=== PATIENT | female | born 1950 | race Caucasian/White ===

== ENCOUNTER 2018-09-23 20:05 | Outpatient (REF) | payer MEDICARE, SELFPAY ==
[2018-09-23 20:23] LABS: Bilirubin Negative (Negative); Blood Large (Negative); Clarity Cloudy; Glucose Negative (Negative); Ketones Negative (Negative); Leukocyte Esterase Small (Negative); Nitrite Negative (Negative); Specific Gravity 1.025 (1.005-1.025); Urobilinogen 0.2 EU/dL (Up TO 0.2)
[2018-09-23 21:03] LABS: C & S Indicated? Yes
== END 2018-09-23 20:25 ==
LOC: LBN 20:05
PROVIDERS: PCP Family Medicine; Visit Provider Family Medicine
DX: R35.0 Frequency of micturition (principal)
CPT/HCPCS: 87077; 81003; 81015; 87086; 87186

== ENCOUNTER 2018-10-15 01:01 | Outpatient (CLI) | payer MEDICARE, SELFPAY ==
--- NOTE | 2018-10-15 09:28 | DI.MAMMO_ITS ---
SYMPTOM/DIAGNOSIS: SCREENING, Z12.31 MAMMOGRAMS: Mammograms were interpreted according to the usual protocol including computer analysis with CAD system, tomosynthesis and C view imaging. Comparison is made with prior examinations. Breast density, category B. No suspicious masses or microcalcifications are seen. There has been no significant change compared to the prior examinations. IMPRESSION: No definite evidence for malignancy. Yearly mammography is recommended. Category 1. MQSA ASSESSMENT OF FINDINGS: Negative. Category 1. Patient will receive a letter notifying them of these results. BI-RADS category B. There are scattered areas of fibroglandular density.
== END 2018-10-15 01:21 ==
PROVIDERS: PCP Family Medicine; Visit Provider Family Medicine
DX: Z12.31 Encounter for screening mammogram for malignant neoplasm of breast (principal)
CPT/HCPCS: 77063; 77067

== ENCOUNTER 2019-03-10 10:00 | Outpatient (CLI) | payer MEDICARE, OTHER, SELFPAY | END 2019-03-10 10:20 | PROVIDERS: PCP Family Medicine; Visit Provider Internal Medicine Cardiovascular Disease | DX: I49.3 Ventricular premature depolarization (principal); I10 Essential (primary) hypertension | CPT/HCPCS: 99214 ==

== ENCOUNTER → 2019-08-19 09:55 | Outpatient (BNVA) | payer MEDICARE, OTHER, SELFPAY | PROVIDERS: PCP Family Medicine; Referring Provider Family Medicine; Visit Provider Physical Therapy Assistant | DX: Z12.11 Encounter for screening for malignant neoplasm of colon (principal); I10 Essential (primary) hypertension ==

== ENCOUNTER 2019-08-29 12:02 | Day surgery (SDC) | payer MEDICARE, OTHER, SELFPAY ==
--- NOTE | 2019-08-29 06:57 | W.COLOREPORT ---
Date of service: 08/29/19 Time of Service: 13:36 Colonoscopy Report Date of procedure: 08/29/19 Pre-op diagnosis general: Colon Cancer Screening Post-op diagnosis procedure note: other (2 polyps) Procedure: Colonoscopy with polypectomy Surgeon: Maria Luisa Clark Anesthesia proc note operative: other (General/ ASA 2/Rosaline Grimaldo CRNA) Estimated blood loss (mL): 5 Pathology: other (ascending polyp, sigmoid polyp) Complications: None Disposition: same day Indications: Mrs. Hale is a pleasant 69 year old female seen in the office for a screening colonoscopy. Risks, benefits and complications have been reviewed. Complications include but are not limited to bleeding, pain, perforation, missed small lesion/polyp, sore throat, aspiration and adverse reaction to the medications. Questions were entertained and answered to their satisfaction and they wished to proceed. No guarantees were given or implied. Prep: Miralax/Dulcolax Procedure Start Time: 13:36 Procedure End Time: 14:04 Retraction Time: 19 minutes Findings: 2 very small polyps, most likely benign Procedure Description: After informed consent was obtained the patient was taken to the procedure room and placed in a left decubitous position. Monitors were applied and a time out was done. The patients name, date of , procedure, allergies to medications and metal in their body was reviewed. The patient was then sedated. Once sedated and comfortable a rectal exam was done. External exam was normal. Internal exam revealed a normal sphincter tone and no palpable masses. The scope was then introduced and retro-flexed. No internal hemorrhoids, masses and polyps were identified on retro-flexion. The scope was then advanced to the cecum without difficulty. The TI and appendiceal orifice were identified. The prep was adequate. The scope was then slowly retracted over 19 minutes back into the rectum. Polyps were removed in the ascending colon and sigmoid colon with cold forceps. The polyps were small and looked benign. The scope was removed and the patient was woken up and taken back to Same day surgery in stable condition. The patient tolerated the procedure well and there were no immediate complications. Follow up: The patient should follow up in 10 years unless they develop changes in bowel habits or other new gastrointestinal complaints.
--- NOTE | 2019-08-29 06:59 | W.PM.DSUDISC ---
Discharge Plan Disposition Patient Disposition: HOME Condition: Good Discharge Details Reason For Visit: colonoscopy Attending Provider: Maria Luisa Clark Primary Care Provider: Bertha Oconnell Home Meds and New Rx's Prescriptions: Continued sodium hyaluronate 20 mg capsule PO RF: 0 B-complex with vitamin C Tablet 1 tab PO DAILY RF: 0 cholecalciferol (vitamin D3) 1,000 UNIT capsule 4,000 unit PO DAILY RF: 0 vitamin E (dl, acetate) 400 UNIT capsule 400 unit PO DAILY RF: 0 turmeric root extract 1 EACH capsule 1 ea PO DAILY Qty: 1 RF: 0 alprazolam [Xanax] 1 mg tablet 1 mg PO BID PRN (Reason: anxiety) Qty: 10 RF: 0 magnesium L-lactate [Magtab] 84 mg tablet extended release 252 mg PO DAILY Qty: 1 RF: 0 atenolol 25 mg tablet 25 mg PO DAILY PRN (Reason: Palpitations) Qty: 90 RF: 4 amitriptyline 10 mg tablet 30 mg PO HS Qty: 270 RF: 12 Discontinued polyethylene glycol 3350 17 gram/dose powder 238 g PO ONCE Qty: 238 RF: 0 bisacodyl [Dulcolax (bisacodyl)] 5 mg tablet,delayed release (DR/EC) 5 mg PO ONCE Qty: 4 RF: 0 Discharge Instructions Instructions: Colonoscopy (DC) Additional Instructions: Findings: 2 very small polyps Follow up: depends on final pathology Please call if you develop: fevers >101.5 Nausea or Vomiting Abdominal pain that is not transient DAY SURGERY UNIT POST ENDOSCOPY INSTRUCTIONS 1. Because there will be medication in your system for the next 24 hours, you may feel a little sleepy. Your coordination will be affected. Therefore: a. Do not drive or operate dangerous equipment for 24 hours. b. Do not drink alcohol beverages for 24 hours (not even beer). c. Plan to go home and rest for the day. 2. Generally there are no restrictions on your activity after a day or so has gone by, but you may feel a bit fatigued for a few days. 3 After you arrive home you may have a light meal and return to a normal diet as you can tolerate it without feeling sick to your stomach. 4. After surgery, you may feel pain or discomfort. This should be only transient, but if it persists please contact your doctor. 5. If there are any questions regarding the findings of your procedure, please feel free to contact your doctor. 6. If you are unable to contact your doctor with a problem, contact the hospital at [phone]. 7. Continue all your regular medications unless directed otherwise. I understand the above instructions and have no questions. Signature of Patient or Responsible Adult Escort Date/Time Name of Responsible Adult Escort Signature of Nurse Date/Time Activity:: Activity as Tolerated Diet:: As Tolerated Discharge Orders Discharge Orders: Discharge Order (Routine); Ordered 08/29/19 Ordered By: Maria Luisa Clark DS: Diagnosis Discharge Diagnosis (1) S/P colonoscopy: Status: Acute
[2019-08-29 12:42] VITALS: BP 141/89; PULSE 95; RESP 18; TEMP 37.1; O2SAT 98
[2019-08-29 12:47] VITALS: BP 141/89; PULSE 95; RESP 18; TEMP 37.1; O2SAT 98
[2019-08-29 12:49] VITALS: BP 141/89; PULSE 95; RESP 18; TEMP 37.1; O2SAT 98
[2019-08-29] MEDS: Lactated Ringers 1,000 ML 80 ML IV (13:00)
--- NOTE | 2019-08-29 13:49 | BOWEL_PTH ---
PATIENT: Meseret Villanueva LOC: [facility] U#:[id number] AGE/SX: 69/F ROOM: RE08/29/[address]: Maria Luisa Clark MD : 1950 BED: DIS: 08/29/2019 SPEC #: [id number] RECD: 08/29/19 19:22 STATUS: DELMIS REQ #: [id number] SAADIA: 08/29/19 13:[address]: Maria Luisa Clark DEPT: Surgical Specimen RECD BY: Hanny Claros ENTERED: 08/29/19 19:24 SP TYPE: Bowel OTHR DR: Bertha Oconnell MD, DC Tissues: 1 - BIOPSY BOWEL 2 - BIOPSY BOWEL Procedures: GROSS AND MICRO LEVEL 4 Comments: [id number]
[2019-08-29 14:42] VITALS: BP 125/79; PULSE 78; RESP 16; TEMP 36.6; O2SAT 97
== END 2019-08-29 15:40 | disposition home or self-care (01) ==
LOC: SUR 12:02
PROVIDERS: PCP Family Medicine; Visit Provider Surgery
PROC: 0DJD8ZZ Inspection of Lower Intestinal Tract, Via Natural or Artificial Opening Endoscopic (ICD-10-PCS; CPT 45378; principal; 2019-08-29 13:30)
DX: Z12.11 Encounter for screening for malignant neoplasm of colon (principal); K63.5 Polyp of colon; I10 Essential (primary) hypertension
CPT/HCPCS: 45380; 88305

== ENCOUNTER 2020-07-10 00:56 | Outpatient (CLI) | payer MEDICARE, OTHER, SELFPAY ==
--- NOTE | 2020-07-10 08:15 | DI.DEXA_ITS ---
EXAM: XR DEXA BONE DENSITY W/WO MICHELINE CLINICAL HISTORY: osteoporosis, M81.0 TECHNIQUE: COMPARISON: 10/01/2009. FINDINGS: Lateral Spine Image: Unremarkable. No compression deformities identified. Left hip: Total T-Score: -0.2. Compared with 0.2 on the prior examination. Total Z-Score: 1.2 T- and Z-scores: Within normal limits. Lumbar Spine: Total T-Score: -1.8. Compared with -1.4 on the prior examination. Total Z-Score: 0.2 T- and Z-scores: Osteopenia and increased fracture risk. IMPRESSION: Osteopenia in the lumbar spine.
--- NOTE | 2020-07-10 16:22 | DI.MAMMO_ITS ---
EXAM: MG MAMMO SCREENING CLINICAL HISTORY: screening, Z12.39 TECHNIQUE: Bilateral full field digital CC and MLO mammographic images were obtained with 3D tomosyn thesis and utilizing computer aided detection (CAD). COMPARISON: Available for comparison. FINDINGS: Masses/Architectural Distortion: There is a new well-circumscribed nodule in the retroareolar central left breast on the mediolateral oblique view. This area should be further evaluated with spot compr ession views and ultrasound. Microcalcifications: No suspicious pleomorphic-type are seen. Skin Thickening/Nipple Retraction: None. IMPRESSION: 1. Well-circumscribed nodule in the retroareolar region of the left breast on the MLO view. 2. Spot compression view and left breast ultrasound are recommended for further evaluation. BI-RADS Category 0 - Assessment Incomplete: Need additional imaging evaluation Breast Density - Category B - Scattered areas of fibroglandular density A negative radiographic report should not delay biopsy if a dominant or clinically suspicious mass is present. Up to ten percent of cancers are not identified on mammography. A negative report may reinforce clinical impression. Adenosis and dense breasts may obscure an underlying neoplasm. False positive reports average 6 to 10%. Patient will receive a letter notifying them of these results.
== END 2020-07-10 01:16 ==
PROVIDERS: PCP Family Medicine; Visit Provider Family Medicine
DX: Z12.31 Encounter for screening mammogram for malignant neoplasm of breast (principal); N63.20 Unspecified lump in the left breast, unspecified quadrant; M85.88 Other specified disorders of bone density and structure, other site
CPT/HCPCS: 77063; 77067; 77080

== ENCOUNTER 2020-07-18 01:07 | Outpatient (CLI) | payer MEDICARE, OTHER, SELFPAY ==
--- NOTE | 2020-07-18 | DI.MAMMO_ITS ---
EXAM: MG MAMMO SCREEN CALL BACK UNI CLINICAL HISTORY: F/U MAMMO, LT BREAST NODULE ON MLO VIEW TECHNIQUE: Spot compression views and tomographic imaging were performed. COMPARISON: 2009 through the recent exam of 10 July 2020. FINDINGS: The breasts are composed of scattered fibroglandular densities, Breast Density category B. No suspicious masses or suspicious microcalcifications are seen. No persistent abnormality is seen on the additional views performed. The findings are consistent wit h overlying fibroglandular tissue. There has been no significant change from prior exams. IMPRESSION: BI-RADS Category 1, Negative Yearly screening mammography is recommended. Breast Density - Category B, scattered fibroglandular densities.
== END 2020-07-18 01:27 ==
PROVIDERS: PCP Family Medicine; Visit Provider Family Medicine
DX: N63.20 Unspecified lump in the left breast, unspecified quadrant (principal)
CPT/HCPCS: 77063; 77067

== ENCOUNTER 2021-07-09 01:37 | Outpatient (CLI) | payer MEDICARE, OTHER, SELFPAY ==
--- NOTE | 2021-07-09 | DI.US_ITS ---
Exam(s) US THYROID EXAM: US THYROID CLINICAL HISTORY: THYROID NODULE, E04.1. TECHNIQUE: Ultrasound thyroid performed using standard protocol. COMPARISON: US THYROID ULTRASOUND from 12/15/2013 US THYROID ULTRASOUND from 12/15/2013 FINDINGS: ISTHMUS: 1 mm RIGHT LOBE: Size: 4.5 cc by 1.8 AP by 1.9 transverse cm Echogenicity: Normal. Vascularity: Normal. Nodules: There is again seen a single nodule in the midpole. It measures 1.6 cc by 0.8 AP by 1.3 tra nsverse cm. This compares with 1.4 x 0.9 x 1.3 cm on the prior examination. The nodule is solid and hypoechoic. It shows smooth margins and no internal echogenic foci. It is consistent with a TI-RAD S level 4 nodule. LEFT LOBE: Size: 3.9 cc by 1.5 AP by 1.3 transverse cm Echogenicity: Normal. Vascularity: Normal. Nodules: None. OTHER FINDINGS: None. IMPRESSION: Stable right thyroid nodule. DATA REPOSITORY:
== END 2021-07-09 01:57 ==
PROVIDERS: PCP Family Medicine; Visit Provider Otolaryngology
DX: E04.1 Nontoxic single thyroid nodule (principal)
CPT/HCPCS: 76536

== ENCOUNTER 2021-09-04 02:41 | Outpatient (CLI) | payer MEDICARE, OTHER, SELFPAY ==
--- NOTE | 2021-09-04 08:15 | DI.MAMMO_ITS ---
Exam(s) MAMMO SCREENING EXAM: MAMMO SCREENING CLINICAL HISTORY: screening,Z12.39. TECHNIQUE: Bilateral full field digital CC and MLO mammographic images were obtained with 3D tomosyn thesis and utilizing computer aided detection (CAD). COMPARISON: Prior mammograms dating back to 2013, the most recent being July 2020. FINDINGS: No new significant radiograph findings in the right breast. In the left breast on 3D MLO imaging there is an asymmetric density-possible nodule located 3.5 cm be hind the nipple and measuring approximately the 8 by 6 millimeters. Noncalcified. No malignant-appearing microcalcification groups in this region or elsewhere in either breast. There is no significant architectural distortion nor skin thickening-retraction. IMPRESSION: 1. No radiographic evidence of malignancy in right breast. 2. Possible left breast nodule. Spot compression MLO view ultrasound recommended BI-RADS Category 0 - Assessment Incomplete: Need additional imaging evaluation Breast Density - Category B - Scattered areas of fibroglandular density Breast density Category C or D implies that the patient has dense breast tissue. Dense breast tissue can make it harder to find cancer on a mammogram. Dense breast tissue is also associated with an incr eased risk of breast cancer. This information about the result of the mammogram report was provided to the patient to raise their awareness. Use this report when you speak with the patient about their risks for breast cancer, which includes their family history. At that time, you may recommend additional screening tests (Ultrasoun d or MRI) as these tests may add significant information. A negative radiographic report should not delay biopsy if a dominant or clinically suspicious mass is present. Up to ten percent of cancers are not identified on mammography. A negative report may reinforce clinical impression. Adenosis and dense breasts may obscure an underlying neoplasm. False positive reports average 6 to 10%. Patient will receive a letter notifying them of these results.
== END 2021-09-04 03:01 ==
PROVIDERS: PCP Family Medicine; Visit Provider Family Medicine
DX: Z12.31 Encounter for screening mammogram for malignant neoplasm of breast (principal); R92.8 Other abnormal and inconclusive findings on diagnostic imaging of breast
CPT/HCPCS: 77063; 77067

== ENCOUNTER 2021-09-20 00:55 | Outpatient (CLI) | payer MEDICARE, OTHER, SELFPAY ==
--- NOTE | 2021-09-20 10:30 | DI.MAMMO_ITS ---
Exam(s) MG MAMMO SCREEN CALL BACK UNI US BREAST LT COMPLETE EXAM: US BREAST LT COMPLETE CLINICAL HISTORY: ASYMMETRIC DENSITY POSSIBLE NODULE LT BREAST TECHNIQUE: Ultrasound performed using standard protocol. COMPARISON: No exams were available for comparison FINDINGS: Additional mammographic views of the left breast and left breast ultrasound are interpreted in conjun ction. These examinations were obtained to evaluate a retroareolar area of nodularity seen on recent mammogram September 04 in the retroareolar central portion of the left breast. Spot compression vie ws today show well-circumscribed persistent but fairly low density nodule, this measures about 9 mill imeters in diameter. Breast ultrasound shows prominent retroareolar ducts but no discrete mass. A 5 millimeter lymph node is noted within the breast as well. No additional mass identified ultrasonographically or on compression views. IMPRESSION: Probably benign findings in the left breast with prominent intramammary ducts and small lymph node wi th normal morphology noted. Follow-up unilateral left breast mammogram recommended in 6 months. BI-RADS Cat 3 - 6 month - Probably Benign Finding: Recommend follow-up imaging in 6 months Breast Density - Category C - Heterogeneously dense DATA REPOSITORY:
== END 2021-09-20 01:15 ==
PROVIDERS: PCP Family Medicine; Visit Provider Family Medicine
DX: R92.8 Other abnormal and inconclusive findings on diagnostic imaging of breast (principal)
CPT/HCPCS: 76642; 77063; 77067

== ENCOUNTER 2021-10-28 01:37 | Outpatient (RCR) | payer MEDICARE, OTHER, SELFPAY ==
--- NOTE | 2021-10-28 11:30 | HOLTER_ITS ---
APPROVED REPORT Conclusion This is a 48-hour Holter monitor ordered for palpitations Predominant rhythm was sinus with an average heart rate of 91. Minimum was 62, maximum 134 There were no significant supraventricular dysrhythmias. There was no atrial fibrillation, no high-grade AV block, no pauses greater than 3 seconds There were occasional ventricular ectopic beats which corresponded to patient symptoms, noting that n ot all PVCs were symptomatic
== END 2021-11-08 23:59 | disposition home or self-care (01) ==
LOC: RT 01:37
PROVIDERS: PCP Family Medicine; Visit Provider Family Medicine
DX: R00.2 Palpitations (principal); I49.3 Ventricular premature depolarization
CPT/HCPCS: 93227; 93246; 93225; 93226

== ENCOUNTER → 2021-11-13 01:58 | Outpatient (CLI) | payer MEDICARE, SELFPAY ==
--- NOTE | 2021-11-13 10:16 | DI.US_ITS ---
APPROVED REPORT EXAM: Comprehensive 2D, Doppler, and color-flow Echocardiogram Patient Location: Out-Patient Stripper Latex: Jaelyn Russell RDCS (AE) Indications: Palpitations Other Information Study Quality: Adequate Conclusion Normal left ventricular size and systolic function. Estimated ejection fraction is 60 to 65%. Wall motion is normal Normal right ventricular size and systolic function Both atria are normal in size Trileaflet aortic valve without stenosis or regurgitation Mild mitral annular calcification, trace mitral regurgitation Normal tricuspid valve with trace regurgitation Wall motion Left Ventricle The left ventricle is normal size. The left ventricular systolic function is normal. The left ventric ular ejection fraction is within the normal range. There is normal left ventricular wall thickness. T here is normal LV segmental wall motion. There is no ventricular septal defect visualized. LVEF is 60 -65%. Right Ventricle The right ventricle is normal size. The right ventricular systolic function is normal. Atria The left atrium size is normal. The right atrium size is normal. The interatrial septum is intact wit h no evidence for an atrial septal defect. Aortic Valve The aortic valve is normal in structure. Aortic valve is trileaflet. There is no aortic valvular sten osis. No aortic regurgitation is present. Mitral Valve Mild mitral annular calcification. No evidence of mitral valve stenosis. Trace mitral regurgitation. Tricuspid Valve The tricuspid valve is normal in structure. There is no tricuspid valve stenosis. Trace tricuspid reg urgitation. Unable to assess PA pressure. Pulmonic Valve The pulmonary valve is normal in structure. There is no pulmonic valvular stenosis. Trace pulmonic re gurgitation. Great Vessels The aortic root is normal in size. The ascending aorta is normal in size. Aortic arch is not well vis ualized. IVC is normal in size and collapses >50% with inspiration. Pericardium There is no pericardial effusion. 2D Dimensions IVSD d PLAX 0.96 cm F: 0.6-1.0 LV Vol A2C d MOD 63.3 mL LVPW d PLAX 0.94 cm F: 0.6 - 1.0 LV Vol A4C d MOD 63.0 mL LVID d PLAX 4.18 cm F: 3.8 - 5.2 LA vol/ BSA A2C s A-L 14.5 mL/m2 LVDs 2.90 cm F: 2.2 - 3.5 LA vol/ BSA A4C s A-L 9.4 mL/m2 Ao Root d 2.78 cm F: 2.7 - 3.3 LA Vol/ BSA Biplane s A-L 12.6 mL/m2 RA Area A4C 10.53 cm2 LA Area A4C s MOD 8.74 cm2 RA Vol/ BSA A4C s A-L 11.9 mL/m2 LA Area A2C s MOD 11.82 cm2 Ao Asc Diam d 2.99 cm F: 2.3 - 3.1 LV EF A4C MOD 58.3 % LV EF Teichholz 58.5 % LV EF A2C MOD 58.3 % LVEF (Granda's) 59.20 % F: 54 - 74 LV EF Biplane MOD 59.2 % LV Volume 52.10 mL F: 46 - 106 SV 40.01 mL LV Volume Index 28.31 mL/m2 F: 29 - 61 SV Index 21.67 mL/m2 LV Vol Biplane MOD 67.6 mL FS 30.55 % M-Mode TAPSE 2.32 cm (M/F) >1.7 LV Diastology MV E' medial 0.068 (>0.07 m/s) E/A Ratio 0.7 LV E/e MED 9.00 (<14) MV E Vmax 0.62 (0.4-1.3 m/s) MV E' lateral 0.083 (>0.1 m/s) MV A Vmax 0.95 (0.4-1.3 m/s) LV E/e LAT 7.45 (<14) MV E/A Ratio 0.63 MV E/E' medial 9.05 MV E/E' lateral 7.45 Aortic Valve LVOT Area 3.53 cm2 AoV Area Vmax 2.87 cm2 LVOT Vmax 1.01 m/s AoV Area/ BSA (Vmax) 1.56 cm2/m2 LVOT Mean Darrel. 0.68 m/s [place] Mean Darrel. 2.64 cm2 LVOT Peak Grad 4.1 mmHg [place] Mean Darrel. Index 1.43 cm2/m2 LVOT Mean Grad 2.1 mmHg LVOT VTI 0.195 m LVOT Diam s 2.10 cm AoV Vmax 1.25 m/s Velocity Ratio 0.80 AoV Mean Darrel. 0.91 m/s AoV Peak Grad 6.2 mmHg LVOT SV 68.90 mL AoV Mean Grad 3.7 mmHg AoV VTI 0.226 m AoV Area VTI 3.05 cm2 AoV Area/ BSA (VTI) 1.65 cm/m2 Mitral Valve MV DT 356 (160-240 msec) MV PHT 103 msec MV Area PHT 2.13 cm2 MV VTI 0.214 m MV Area VTI 3.21 (4.0-6.0 cm2) Pulmonary Valve PV Vmax 0.96 (0.5-1.5 m/s) RVOT Peak Gr. 2.11 mmHg PV Peak Grad 3.7 mmHg RVOT Mean Gr. 1.00 mmHg PV Mean Grad 2.0 mmHg RVOT VTI 0.155 m PV VTI 0.172 m RVOT Vmax 0.73 m/s
== END ==
PROVIDERS: PCP Family Medicine; Visit Provider Family Medicine
DX: R00.2 Palpitations (principal)
CPT/HCPCS: 93306

== ENCOUNTER → 2022-04-18 00:30 | Outpatient (CLI) | payer MEDICARE, SELFPAY ==
--- NOTE | 2022-04-18 07:45 | DI.MAMMO_ITS ---
Exam(s) MAMMO DIAGNOSTIC UNI EXAM: MAMMO DIAGNOSTIC UNI CLINICAL HISTORY: 3-6 mos f/u abnormal mammo,Z09,R92.8. TECHNIQUE: Craniocaudal and mediolateral oblique Full Field Digital Mammography views of the left br east with Computer Aided Diagnosis followed by Tomosynthesis. COMPARISON: Comparison is made with prior examinations. FINDINGS: Mammography/Tomosynthesis: Masses/Architectural Distortion: None seen. Microcalcifictions: No suspicious pleomorphic-type are seen. Skin Thickening/Nipple Retraction: None. IMPRESSION: 1. No evidence of malignancy is noted. 2. Unless there is more urgent need, follow-up screening mammography is recommended, as per [employer] guidelines. 3. The findings were discussed with the patient on the date of the examination. BI-RADS Category 1 - Negative Breast Density - Category B - Scattered areas of fibroglandular density Breast density Category C or D implies that the patient has dense breast tissue. Dense breast tissue can make it harder to find cancer on a mammogram. Dense breast tissue is also associated with an incr eased risk of breast cancer. This information about the result of the mammogram report was provided to the patient to raise their awareness. Use this report when you speak with the patient about their risks for breast cancer, which includes their family history. At that time, you may recommend additional screening tests (Ultrasoun d or MRI) as these tests may add significant information. A negative radiographic report should not delay biopsy if a dominant or clinically suspicious mass is present. Up to ten percent of cancers are not identified on mammography. A negative report may reinforce clinical impression. Adenosis and dense breasts may obscure an underlying neoplasm. False positive reports average 6 to 10%. Patient will receive a letter notifying them of these results.
== END ==
PROVIDERS: PCP Family Medicine; Visit Provider Family Medicine
DX: R92.8 Other abnormal and inconclusive findings on diagnostic imaging of breast (principal); N64.59 Other signs and symptoms in breast
CPT/HCPCS: 77061; 77065; G0279

== ENCOUNTER 2022-07-15 19:40 | Outpatient (REF) | payer MEDICARE, SELFPAY ==
[2022-07-15 21:23] LABS: Bilirubin Negative (Negative); Blood Trace-intact (Negative); Clarity Clear (Clear); Glucose Negative (Negative); Ketones Negative (Negative); Leukocyte Esterase Negative (Negative); Nitrite Negative (Negative); Urobilinogen 0.2 EU/dL (Up TO 0.2)
[2022-07-15 22:17] LABS: Bacteria Negative HPF (Negative); C & S Indicated? Yes; Casts Negative LPF (Negative); Crystals Negative HPF (Negative); Epithelial Cells Negative HPF (Negative); Mucus Negative (Negative); Other Cells Negative (Negative); RBC Negative HPF (0-2)
== END 2022-07-15 19:41 | disposition home or self-care (01) ==
LOC: LBN 19:40
PROVIDERS: PCP Family Medicine; Visit Provider Family Medicine
DX: R30.0 Dysuria (principal)
CPT/HCPCS: 81003; 81015; 87086

== ENCOUNTER → 2023-07-27 02:54 | Outpatient (CLI) | payer MEDICARE, SELFPAY ==
--- NOTE | 2023-07-27 08:00 | DI.US_ITS ---
Exam(s) US THYROID EXAM: US THYROID CLINICAL HISTORY: Assess stability,rt thyroid nodule,e04.1. TECHNIQUE: Ultrasound thyroid performed using standard protocol. COMPARISON: US THYROID ULTRASOUND from 12/15/2013 US US THYROID from 07/09/2021 FINDINGS: ISTHMUS: 2 mm RIGHT LOBE: Size: 4.71.9 x 1 9 cm Echogenicity: Normal. Vascularity: Normal. Nodules: Stable appearances 2013 of solid smoothly marginated hypoechoic nodule without echogenic foc i. Shows blood flow. Measuring 1.5 x 1.1 x 1.1 cm. TR 4. LEFT LOBE: Size: 4.0 x 1.0 x 1.2 cm Echogenicity: Normal. Vascularity: Normal. Nodules: None. OTHER FINDINGS: None. IMPRESSION: Stable appearance of thyroid nodule from 2013. No new nodules. DATA REPOSITORY:
== END ==
PROVIDERS: PCP Family Medicine; Visit Provider Otolaryngology
DX: E04.1 Nontoxic single thyroid nodule (principal)
CPT/HCPCS: 76536

== ENCOUNTER → 2023-11-23 04:29 | Outpatient (CLI) | payer MEDICARE, SELFPAY ==
--- NOTE | 2023-11-23 10:10 | DI.RAD_ITS ---
Exam(s) RF BARIUM SWALLOW EXAM: RF BARIUM SWALLOW CLINICAL HISTORY: dysphagia/gerd ? hiatal hernia,R13.10 TECHNIQUE: 2D and realtime digital imaging was performed. CONTRAST MATERIAL: Thick and thin barium and barium tablet were administered. COMPARISON: CR CERV SP.WITH OBL OR FLEX/EXT from 06/27/2011 FINDINGS: The PA and lateral chest films show normal heart size. Minimal linear scarring right lung base. The lateral apron worker view of the neck shows degenerative changes at C6-7 as well as facet degenerative c hanges. Esophagus: The patient swallowed barium without difficulty. Noevidence for mucosal erosions. Nofold thickening. No mass is visible. The barium tablet stuck briefly at the GE junction. Motility: There is a normal primary stripping wave. No tertiary contractions were noted. There is a small hiatal hernia. Moderate to severe gastroesophageal reflux was observed during the exam. IMPRESSION: Small hiatal hernia and gastroesophageal reflux. RADIATION DOSE DELIVERED: Ka,r=20.2 mGy
[2023-11-23] MEDS: Simethicone/Sod Bicarb/Cit Ac, 4 gram PACKET 1 PACKET PO (10:27)
[2023-11-23] MEDS: Barium Sulfate 700 MG TAB PO (10:27)
[2023-11-23] MEDS: Barium Sulfate 98% W/W 140 ML BTL PO (10:28)
[2023-11-23] MEDS: Barium Sulfate 60% W/V 355 ML BTL PO (10:28)
== END ==
PROVIDERS: PCP Family Medicine; Visit Provider Family Medicine
DX: R13.10 Dysphagia, unspecified (principal)
CPT/HCPCS: 74221; J3490

== ENCOUNTER → 2023-11-26 03:00 | Outpatient (CLI) | payer MEDICARE, SELFPAY ==
--- NOTE | 2023-11-26 08:00 | DI.MAMMO_ITS ---
Exam(s) MAMMO SCREENING EXAM: MAMMO SCREENING CLINICAL HISTORY: screening,z12.39 TECHNIQUE: Mammograms were interpreted according to the usual protocol including computer analysis w [employer] CAD system, tomosynthesis and C-view imaging. COMPARISON: 2013 through 2021 FINDINGS: The breasts are composed of scattered fibroglandular densities, Breast Density category B. No suspicious masses or suspicious microcalcifications are seen. No skin thickening or abnormal axillary lymph nodes are seen. There has been no significant change from prior exams. IMPRESSION: BI-RADS Category 1, Negative mammogram Yearly screening mammography is recommended. Breast Density - Category B, scattered fibroglandular densities. A negative radiographic report should not delay biopsy if a dominant or clinically suspicious mass is present. Up to ten percent of cancers are not identified on mammography. A negative report may reinforce clinical impression. Adenosis and dense breasts may obscure an underlying neoplasm. False positive reports average 6 to 10%. Patient will receive a letter notifying them of these results.
== END ==
PROVIDERS: PCP Family Medicine; Visit Provider Family Medicine
DX: Z12.31 Encounter for screening mammogram for malignant neoplasm of breast (principal); R92.323 Mammographic fibroglandular density, bilateral breasts
CPT/HCPCS: 77063; 77067

== ENCOUNTER 2023-11-26 04:50 | Outpatient (CLI) | payer MEDICARE, SELFPAY ==
[2023-11-26 11:35] LABS: HGB 14.4 g/dL (11.2-15.7); MCH 29.9 pg (27.0-33.0); MCHC 33.5 % (32.0-36.0); MCV 89 fL (80-95); MPV 9.7 fL (8.0-11.0); Platelet Count 233 10^3/uL (130-400); RBC 4.82 10^6/uL (3.93-5.22); RDW 13.2 % (11.7-14.6); RDW-SD 42.9 fL; WBC 5.82 10^3/uL (4.4-10.8)
[2023-11-26 12:52] LABS: ALT 32 U/L (14-59); AST 17 U/L (15-37); Albumin 3.7 g/dL (3.4-5.0); Alkaline Phosphatase 66 U/L (46-116); Anion Gap 8.2 mmol/L (3-11); BUN 24 mg/dL (7-18); Bilirubin, Total 0.3 mg/dL (0.2-1.0); CO2 26.8 mmol/L (21.0-32.0); CREATININE 0.9 mg/dL (0.55-1.02); Calcium 9.4 mg/dL (8.5-10.1); Calculated LDL 137 mg/dL (<100); Chloride 105 mmol/L (98-107); Cholesterol 235 mg/dL (<200); Estimated GFR 68.35 (mL/min/1.73m2); Glucose 106 mg/dL (74-106); HDL Cholesterol 57 mg/dL (40-60); Potassium 4.7 mmol/L (3.5-5.1); Sodium 140 mmol/L (136-145); TSH (W/Ref FT4) 3.35 uIU/mL (0.36-3.74); Triglyceride 207 mg/dL (<150); Vitamin B12 748 pg/mL (193-986)
== END 2023-11-26 04:51 | disposition home or self-care (01) ==
LOC: LBO 04:50
PROVIDERS: PCP Family Medicine; Visit Provider Family Medicine
DX: I10 Essential (primary) hypertension (principal); R53.83 Other fatigue
CPT/HCPCS: 36415; 80053; 80061; 85027; 82607; 84443

== ENCOUNTER 2025-02-16 09:58 | Outpatient (CLI) | payer MEDICARE, SELFPAY ==
[2025-02-16 12:31] LABS: Bilirubin Negative (Negative); Blood Trace-intact (Negative); Clarity Clear (Clear); Glucose Negative (Negative); Ketones Negative (Negative); Leukocyte Esterase Negative (Negative); Nitrite Negative (Negative); Specific Gravity 1.015 (1.005-1.025); Urobilinogen 0.2 mg/dL (Up to 0.2)
[2025-02-16 12:53] LABS: WBC Negative HPF (0-5)
[2025-02-16 12:54] LABS: Bacteria Rare HPF (Negative); C & S Indicated? No; Epithelial Cells Rare HPF (Negative); RBC 0-2 HPF (0-2)
[2025-02-16 13:05] LABS: ALT 29 U/L (14-59); AST 15 U/L (15-37); Albumin 3.8 g/dL (3.4-5.0); Alkaline Phosphatase 81 U/L (46-116); Anion Gap 10.4 mmol/L (3-11); BUN 25 mg/dL (7-18); Bilirubin, Total 0.3 mg/dL (0.2-1.0); CO2 24.6 mmol/L (21.0-32.0); CREATININE 0.8 mg/dL (0.55-1.02); Calcium 9.4 mg/dL (8.5-10.1); Chloride 106 mmol/L (98-107); Estimated GFR 78.24 (mL/min/1.73m2); Glucose 98 mg/dL (74-106); Potassium 4.2 mmol/L (3.5-5.1); Sodium 141 mmol/L (136-145); Total Protein 6.8 g/dL (6.4-8.2)
== END 2025-02-16 09:59 | disposition home or self-care (01) ==
PROVIDERS: PCP Family Medicine; Referring Provider Family Medicine; Visit Provider Family Medicine
DX: Z87.442 Personal history of urinary calculi (principal)
CPT/HCPCS: 36415; 80053; 81003; 81015

== ENCOUNTER 2025-02-22 01:44 | Outpatient (CLI) | payer MEDICARE, SELFPAY ==
--- NOTE | 2025-02-22 06:45 | DI.US_ITS ---
Exam(s) US RENAL EXAM: US RENAL CLINICAL HISTORY: h/o of kidney stone,z87.442 TECHNIQUE: Ultrasound of both kidneys performed using standard protocol. COMPARISON: US US THYROID from 07/27/2023 FINDINGS: RIGHT KIDNEY: Measures 10.2 cm in length. No cysts evident. Normal cortical thickness and corticomedullary differen tiation .No solid masses At the midpole level there is an echogenic 6 mm focus which is probably a nonobstructive calculus. LEFT KIDNEY: Measures 9.9 Cm in length. There is a single small 1 cm cyst at the midpole level. Normal cortical thickness and corticomedullary differentiaion. No solids masses. No intrarenal calculi nor hydoneph rosis. URINARY BLADDER: Prevoid volume is 78 cc Postvoid volume is 11 cc No evidence of bladder mass nor diverticuli. Ureterovesical jets: Both identified and appear symmetrical IMPRESSION: 1. Single nonobstructive 6 mm calculus at the midpole level of the right kidney. 2. Small benign 1 cm cyst in the left kidney. No solid renal masses. No obvious abnormality in the urinary bladder. Postvoid residual amount of urine in the bladder is w ithin normal limits. DATA REPOSITORY:
== END 2025-02-22 02:04 ==
PROVIDERS: PCP Family Medicine; Visit Provider Family Medicine
DX: Z87.442 Personal history of urinary calculi (principal); Z13.89 Encounter for screening for other disorder; N20.0 Calculus of kidney
CPT/HCPCS: 76770

== ENCOUNTER 2025-03-16 00:28 | Outpatient (CLI) | payer MEDICARE, SELFPAY ==
--- NOTE | 2025-03-16 08:00 | DI.MAMMO_ITS ---
Exam(s) MAMMO SCREENING EXAM: MAMMO SCREENING CLINICAL HISTORY: screening,z12.39. TECHNIQUE: Bilateral full field digital CC and MLO mammographic images were obtained with 3D tomosyn thesis and utilizing computer aided detection (CAD). COMPARISON: Prior mammograms were reviewed. FINDINGS: No new findings in the right breast. In the left breast there is an asymmetric density-possible nodule seen on 3D MLO view measuring appro ximately 7 x 5 mm and located 7 cm in from the nipple on the MLO view. There is a 2nd possible nodule on the MLO view measuring 5 x 4 mm located approximately 4 cm in from the nipple. There are no malignant-appearing microcalcification groups in these regions nor elsewhere in either b reast. There is no significant architectural distortion nor skin thickening-retraction. IMPRESSION: 1. No radiographic evidence of malignancy in the right breast. 2. There are 2 areas of asymmetric density-possible nodules evident in the left breast on the MLO vie w. Spot compression MLO views and breast ultrasound recommended. BI-RADS Category 0 - Incomplete: Need additional imaging evaluation Breast Density - Category B - There are scattered areas of fibroglandular density. Breast density Category C or D implies that the patient has dense breast tissue. Dense breast tissue can make it harder to find cancer on a mammogram. Dense breast tissue is also associated with an incr eased risk of breast cancer. This information about the result of the mammogram report was provided to the patient to raise their awareness. Use this report when you speak with the patient about their risks for breast cancer, which includes their family history. At that time, you may recommend additional screening tests (Ultrasoun d or MRI) as these tests may add significant information. A negative radiographic report should not delay biopsy if a dominant or clinically suspicious mass is present. Up to ten percent of cancers are not identified on mammography. A negative report may reinforce clinical impression. Adenosis and dense breasts may obscure an underlying neoplasm. False positive reports average 6 to 10%. Patient will receive a letter notifying them of these results.
== END 2025-03-16 00:48 ==
LOC: DI 00:28
PROVIDERS: PCP Family Medicine; Visit Provider Family Medicine
DX: Z12.31 Encounter for screening mammogram for malignant neoplasm of breast (principal); R92.323 Mammographic fibroglandular density, bilateral breasts
CPT/HCPCS: 77063; 77067

== ENCOUNTER 2025-03-21 02:02 | Outpatient (CLI) | payer MEDICARE, SELFPAY ==
--- NOTE | 2025-03-21 | DI.US_ITS ---
Exam(s) MG MAMMO SCREEN CALL BACK UNI US BREAST LT COMPLETE EXAM: MG MAMMO SCREEN CALL BACK UNI and U/S breast LT complete CLINICAL HISTORY: 2 areas of asymmetric density, lt breast, 7x5 mm 7 cm from nipple and. TECHNIQUE: Craniocaudal and mediolateral oblique Full Field Digital Mammography views of the left br east with Computer Aided Diagnosis followed by Tomosynthesis and complete left breast ultrasound. Al l 4 quadrants of the left breast were evaluated sonographically. The left axilla and left retroareol ar region were also interrogated sonographically. COMPARISON: Comparison is made with prior examinations. FINDINGS: Mammography/Tomosynthesis: Masses/Architectural Distortion: There is a well-circumscribed nodule approximately 3 cm from the nip ple on the MLO view. This has been present on prior examinations and has a similar appearance. No s uspicious nodules are seen. The area seen in the upper left breast on the MLO view does not persist on the additional views. Microcalcifictions: No suspicious pleomorphic-type are seen. Skin Thickening/Nipple Retraction: None. Complete left breast US: Echotexture: Normal appearance of the glandular tissue. Shadowing: No suspicious foci. Cyst: There is a cyst measuring 0.4 x 0.2 x 0.4 cm at the 3 o'clock position of the left breast 3 cm from the nipple. This is unchanged compared to the prior examination from 09/20/2021. No suspicious cystic lesions are seen in the left breast. Solid lesions: None seen. Ductal dilation: None. IMPRESSION: 1. No evidence of malignancy is noted. 2. Unless there is more urgent need, follow-up screening mammography is recommended, as per [employer] guidelines. 3. The findings were discussed with the patient on the date of the examination. BI-RADS Category 2 - Benign Findings Breast Density - Category B - There are scattered areas of fibroglandular density. Breast density Category C or D implies that the patient has dense breast tissue. Dense breast tissue can make it harder to find cancer on a mammogram. Dense breast tissue is also associated with an incr eased risk of breast cancer. This information about the result of the mammogram report was provided to the patient to raise their awareness. Use this report when you speak with the patient about their risks for breast cancer, which includes their family history. At that time, you may recommend additional screening tests (Ultrasoun d or MRI) as these tests may add significant information. A negative radiographic report should not delay biopsy if a dominant or clinically suspicious mass is present. Up to ten percent of cancers are not identified on mammography. A negative report may reinforce clinical impression. Adenosis and dense breasts may obscure an underlying neoplasm. False positive reports average 6 to 10%. Patient will receive a letter notifying them of these results.
== END 2025-03-21 02:22 ==
LOC: DI 02:02
PROVIDERS: PCP Family Medicine; Visit Provider Family Medicine
DX: Z12.31 Encounter for screening mammogram for malignant neoplasm of breast (principal); N60.01 Solitary cyst of right breast
CPT/HCPCS: 76642; 77063; 77067

== ENCOUNTER 2025-04-17 01:55 | Outpatient (CLI) | payer MEDICARE, SELFPAY ==
--- NOTE | 2025-04-17 07:30 | DI.DEXA_ITS ---
Exam(s) XR DEXA BONE DENSITY W/WO MICHELINE EXAM: XR DEXA BONE DENSITY W/WO MICHELINE CLINICAL HISTORY: post menopausal status, screening for osteoporosis,z78.0 TECHNIQUE: COMPARISON: CR XR DEXA BONE DENSITY W/WO MICHELINE from 07/10/2020 FINDINGS: Lateral Spine Image: Unremarkable. No compression deformities identified. Left hip: Total T-Score: -0.1. This compares to -0.2 on the prior examination. Total Z-Score: 1.5 T- and Z-scores: There is no evidence of osteoporosis. Lumbar Spine: Total T-Score: -1.6. This compares to -1.8 on the prior examination. Total Z-Score: 0.6 T- and Z-scores: Findings are consistent with osteopenia. IMPRESSION: No evidence of osteoporosis.
== END 2025-04-17 02:15 ==
LOC: DI 01:56
PROVIDERS: PCP Family Medicine; Visit Provider Family Medicine
DX: Z78.0 Asymptomatic menopausal state (principal); Z13.820 Encounter for screening for osteoporosis
CPT/HCPCS: 77080

== ENCOUNTER 2025-09-26 03:38 | Outpatient (CLI) | payer MEDICARE, SELFPAY ==
[2025-09-26 15:40] LABS: TSH (W/Ref FT4) 2.51 uIU/mL (0.55-4.78)
== END 2025-09-26 03:39 | disposition home or self-care (01) ==
PROVIDERS: PCP Family Medicine; Visit Provider Family Medicine
DX: E03.9 Hypothyroidism, unspecified (principal)
CPT/HCPCS: 36415; 84443